=== PATIENT | male | born 1970 | race Caucasian/White ===

== ENCOUNTER → 2023-07-11 | Outpatient (CLI) | payer OTHER ==
--- NOTE | 2023-07-11 12:54 | Diagnostic Imaging Report ---
EXAMINATION: Left shoulder radiographs, 3 views. COMPARISON: None. HISTORY: 52-year-old male, left shoulder pain. FINDINGS: The humeral head is normally positioned relative to the glenoid. There is no glenohumeral joint space loss. The acromioclavicular joint is normally aligned. There are no acromioclavicular degenerative changes. IMPRESSION: Unremarkable radiographs of the left shoulder. Dictated by: Dictated on workstation # [id number]
== END ==
LOC: RAD 10:43
PROVIDERS: ATTEND Family Medicine
DX: Z02.71 Encounter for disability determination (principal); M25.512 Pain in left shoulder
CPT/HCPCS: 73030